=== PATIENT | male | born 1950 | race Hispanic/Latino ===

== ENCOUNTER 2018-01-28 07:13 | Day surgery (SDC) | payer OTHER ==
[~2018-01-28] VITALS: Ht 149.9 cm; Wt 66.1 kg
[~2018-01-28 07:13] MED LIST: ASPI-555 PO; FINA5TAB41 PO; GABA-529 PO; OMEP20CA10 PO; SENN8.6T20 PO; SODIUM CHLORIDE 0.9% 1000ML 1,000 ML IV ONE
[2018-01-28 08:39] VITALS: BP 125/75
[2018-01-28] MEDS ORDERED: PROPOFOL 10 MG/ML 20ML VIAL IV ONE ×2 (09:20→09:40)
[2018-01-28] MEDS ORDERED: FENTANYL CITRATE PF 50 MCG/1 ML 2ML VIAL ONE (09:20)
[2018-01-28 09:47] VITALS: BP 86/48
== END 2018-01-28 10:30 ==
LOC: DAH 07:13 → ENDO 07:13
PROVIDERS: ATTEND Internal Medicine Gastroenterology
DX: R19.4 Change in bowel habit (principal); K59.00 Constipation, unspecified; K21.0 Gastro-esophageal reflux disease with esophagitis; E78.5 Hyperlipidemia, unspecified; N40.0 Benign prostatic hyperplasia without lower urinary tract symptoms; F32.9 Major depressive disorder, single episode, unspecified; Z98.890 Other specified postprocedural states; Z79.899 Other long term (current) drug therapy; K44.9 Diaphragmatic hernia without obstruction or gangrene
CPT/HCPCS: 43235; 45378; A4606; J2704 ×2; J3010; J7030; 43239

== ENCOUNTER → 2018-08-25 | Outpatient (CLI) | payer OTHER ==
[~2018-08-25] MED LIST changes: -OMEP20CA10 PO; -SODIUM CHLORIDE 0.9% 1000ML 1,000 ML IV ONE
== END | disposition home or self-care (01) ==
LOC: RAH 13:40
PROVIDERS: ATTEND Family Medicine
DX: L72.0 Epidermal cyst (principal)
CPT/HCPCS: 76870

== ENCOUNTER 2018-11-29 07:56 | Day surgery (SDC) | payer OTHER ==
[2018-11-25 15:40] LABS: EOSINOPHILS % (AUTO) 2.4 % (0.0-8.0); HEMATOCRIT 39.4 % (42-54); MEAN CORPUSCULAR HEMOGLOBIN 29.8 pg (27.0-33.0); MEAN CORPUSCULAR HGB CONC 33.1 g/dL (32.0-36.0); MONOCYTES % (AUTO) 5.5 % (3.0-13.0); NEUTROPHILS % (AUTO) 68.1 % (40.0-77.0); NUCLEATED RED BLOOD CELLS 0.1 % (0.0-0.19); PLATELET COUNT (AUTO) 332 K/uL (130-400); RED BLOOD CELL COUNT(AUTO) 4.38 MIL/uL (4.50-6.20); RED CELL DISTRIBUTION WIDTH 14.4 % (11.0-15.5); WHITE BLOOD COUNT (AUTO) 7.9 K/uL (4.8-10.8)
[2018-11-25 15:52] LABS: CREATININE 0.8 mg/dL (0.5-1.5); POTASSIUM 3.9 mmol/L (3.5-5.1)
[2018-11-25 15:58] LABS: APPEARANCE,URINE Clear (CLEAR); BILIRUBIN,URINE Negative (NEGATIVE); COLOR,URINE Yellow (YELLOW); GLUCOSE, URINE (UA) Negative (NEGATIVE); KETONES,URINE Negative (NEGATIVE); LEUKOCYTE ESTERASE ,URINE Negative (NEGATIVE); NITRATE,URINE Negative (NEGATIVE); OCCULT BLOOD,URINE Negative (NEGATIVE); PROTEIN,URINE Negative (NEGATIVE)
[2018-11-25 16:17] VITALS: BP 132/68
[2018-11-29] VITALS (15 sets, daily range): BP systolic 72–148; BP diastolic 61–79
[~2018-11-29] VITALS: Ht 149.9 cm; Wt 69.7 kg
[~2018-11-29 07:56] MED LIST changes: -ASPI-555 PO; -GABA-529 PO; +LACTATED RINGERS 1000ML 1,000 ML IV SCH; +NAPR-1023 PO; +PANT20TA12 PO; -SENN8.6T20 PO
[2018-11-29] MEDS ORDERED: BUPIVACAINE/PF 0.25% 30ML VIAL IJ ONE (08:37)
[2018-11-29] MEDS ORDERED: ATOR20TA65 PO (08:43)
--- NOTE | 2018-11-29 08:43 | NUR ---
VALUABLES: CLOTHING, MEDICATIONS, GLASSES, CELL PHONE AND WALLET GIVEN TO .
[2018-11-29] MEDS ORDERED: DEXAMETHASONE SOD PHOSPHATE 4 MG/ML 1ML VIAL ONE (09:19)
[2018-11-29] MEDS ORDERED: ONDANSETRON HCL 4 MG/2 ML VIAL ONE (09:20)
[2018-11-29] MEDS ORDERED: ROCURONIUM 10MG/1ML SYR 10 MG/ML ML ONE (09:20)
[2018-11-29] MEDS ORDERED: GLYCOPYRROLATE 1 MG/5 ML SYRINGE ONE (09:20)
[2018-11-29] MEDS ORDERED: MIDAZOLAM HCL 1 MG/ML 2ML VIAL ONE (09:20)
[2018-11-29] MEDS ORDERED: FENTANYL CITRATE PF 50 MCG/1 ML 2ML VIAL ONE (09:20)
[2018-11-29] MEDS ORDERED: NEOSTIGMINE 5MG/5ML SYR IV ONE (09:20)
[2018-11-29] MEDS ORDERED: LIDOCAINE PF 2% 5ML ABBOJECT ONE (09:20)
[2018-11-29] MEDS ORDERED: PROPOFOL 10 MG/ML 20ML VIAL IV ONE ×2 (09:20→09:35)
--- NOTE | 2018-11-29 11:40 | NUR ---
SLIGHT SWELLING TO LT UPPER LIP,,,ICE APPLIED,NO OTHER COMPLAINTS
--- NOTE | 2018-11-29 11:45 | NUR ---
INSTRUCTIONS GIVEN TO SPOUSE ,VERBALIZE UNDERSTANDING
== END 2018-11-29 12:00 | disposition home or self-care (01) ==
LOC: DAH 07:56
PROVIDERS: ATTEND Surgery
DX: K40.90 Unilateral inguinal hernia, without obstruction or gangrene, not specified as recurrent (principal); M19.90 Unspecified osteoarthritis, unspecified site; N40.1 Benign prostatic hyperplasia with lower urinary tract symptoms; M54.16 Radiculopathy, lumbar region; F32.9 Major depressive disorder, single episode, unspecified; K21.9 Gastro-esophageal reflux disease without esophagitis; E78.5 Hyperlipidemia, unspecified; E66.3 Overweight; I45.10 Unspecified right bundle-branch block; M99.04 Segmental and somatic dysfunction of sacral region; Z79.899 Other long term (current) drug therapy; Z82.49 Family history of ischemic heart disease and other diseases of the circulatory system; Z83.3 Family history of diabetes mellitus; E66.9 Obesity, unspecified
CPT/HCPCS: 36415; 49505; 80048; 81003; 85025; 93005; A4450; A4452; A4930; C1729; C1781; J1100; J2001; J2250; J2405; J2704; J2710; J3010; J3490 ×2; J7120

== ENCOUNTER → 2019-01-17 | Outpatient (CLI) | payer OTHER ==
[~2019-01-17] MED LIST changes: +ATOR20TA65 PO; -LACTATED RINGERS 1000ML 1,000 ML IV SCH
== END | disposition home or self-care (01) ==
LOC: OIH 13:58
PROVIDERS: ATTEND Internal Medicine Cardiovascular Disease
DX: Z13.6 Encounter for screening for cardiovascular disorders (principal)
CPT/HCPCS: 75571

== ENCOUNTER → 2019-02-01 | Outpatient (CLI) | payer OTHER | END | disposition home or self-care (01) | LOC: SHCH 15:34 | PROVIDERS: ATTEND Internal Medicine Cardiovascular Disease | DX: I11.9 Hypertensive heart disease without heart failure (principal) | CPT/HCPCS: 93306 ==

== ENCOUNTER → 2019-05-08 | Outpatient (CLI) | payer OTHER ==
[~2019-05-08] VITALS: Ht 157.5 cm; Wt 69.4 kg
[~2019-05-08] MED LIST changes: +REGADENOSON 0.4 MG/5 ML PF SYG IVP ONE; +REGADENOSON 0.4 MG/5 ML PF SYG IVP SCH
== END | disposition home or self-care (01) ==
LOC: SHCH 08:18
PROVIDERS: ATTEND Internal Medicine Cardiovascular Disease
DX: I10 Essential (primary) hypertension (principal); E78.5 Hyperlipidemia, unspecified; K21.9 Gastro-esophageal reflux disease without esophagitis; K44.9 Diaphragmatic hernia without obstruction or gangrene; Z82.49 Family history of ischemic heart disease and other diseases of the circulatory system
CPT/HCPCS: 78452; 93017; 96374; A9500 ×2; J2785

== ENCOUNTER → 2019-10-31 | Outpatient (CLI) | payer OTHER ==
[~2019-10-31] MED LIST changes: -REGADENOSON 0.4 MG/5 ML PF SYG IVP ONE; -REGADENOSON 0.4 MG/5 ML PF SYG IVP SCH
== END | disposition home or self-care (01) ==
LOC: RAH 09:48
PROVIDERS: ATTEND Physical Medicine & Rehabilitation
DX: K42.9 Umbilical hernia without obstruction or gangrene (principal); K40.90 Unilateral inguinal hernia, without obstruction or gangrene, not specified as recurrent; K57.30 Diverticulosis of large intestine without perforation or abscess without bleeding; N40.0 Benign prostatic hyperplasia without lower urinary tract symptoms; M47.819 Spondylosis without myelopathy or radiculopathy, site unspecified
CPT/HCPCS: 74176

== ENCOUNTER → 2019-12-20 | Outpatient (CLI) | payer OTHER ==
[~2019-12-20] MED LIST changes: +GADODIAMIDE 10 MMOL/20 ML VIAL IV ONE
== END | disposition home or self-care (01) ==
LOC: RAH 13:48
PROVIDERS: ATTEND Family Medicine
DX: R51 Headache (principal)
CPT/HCPCS: 70553; A9579

== ENCOUNTER → 2020-05-31 | Outpatient (CLI) | payer OTHER ==
[~2020-05-31] MED LIST changes: -GADODIAMIDE 10 MMOL/20 ML VIAL IV ONE
== END | disposition home or self-care (01) ==
LOC: SHCH 14:30
PROVIDERS: ATTEND Internal Medicine Cardiovascular Disease
DX: I08.3 Combined rheumatic disorders of mitral, aortic and tricuspid valves (principal); I65.23 Occlusion and stenosis of bilateral carotid arteries; R01.1 Cardiac murmur, unspecified
CPT/HCPCS: 93306; 93356; 93880

== ENCOUNTER → 2020-12-27 | Outpatient (CLI) | payer OTHER ==
[~2020-12-27] VITALS: Ht 157.5 cm; Wt 68.5 kg
[~2020-12-27] MED LIST changes: -PANT20TA12 PO; +PANT20TA18 PO
[2020-12-27] MEDS: REGADENOSON 0.4 MG/5 ML PF SYG IVP SCH (13:00)
== END | disposition home or self-care (01) ==
LOC: SHCH 08:45
PROVIDERS: ATTEND Internal Medicine Cardiovascular Disease
DX: I10 Essential (primary) hypertension (principal); I25.10 Atherosclerotic heart disease of native coronary artery without angina pectoris
CPT/HCPCS: 78452; 93017; 96374; A9500 ×2; J2785

== ENCOUNTER → 2023-05-06 | Outpatient (CLI) | payer OTHER ==
[2023-05-06 12:14] LABS: CREATININE 0.8 mg/dL (0.5-1.5); POTASSIUM 4.2 mmol/L (3.5-5.1)
== END | disposition home or self-care (01) ==
LOC: LAB 08:41
PROVIDERS: ATTEND Physician Assistant
DX: I10 Essential (primary) hypertension (principal)
CPT/HCPCS: 36415; 80048

== ENCOUNTER → 2023-05-20 | Outpatient (CLI) | payer OTHER ==
[~2023-05-20] MED LIST changes: +IOHEXOL 350 MG/ML 100ML INFUS..BTL IV ONE
== END | disposition home or self-care (01) ==
LOC: RAH 08:04
PROVIDERS: ATTEND Internal Medicine Cardiovascular Disease
DX: R07.9 Chest pain, unspecified (principal)
CPT/HCPCS: 75574; Q9967

== ENCOUNTER → 2024-01-18 | Outpatient (CLI) | payer OTHER ==
[~2024-01-18] MED LIST changes: -IOHEXOL 350 MG/ML 100ML INFUS..BTL IV ONE
== END | disposition home or self-care (01) ==
LOC: RAH 14:32
PROVIDERS: ATTEND Physician Assistant
DX: M47.816 Spondylosis without myelopathy or radiculopathy, lumbar region (principal); M54.51 Vertebrogenic low back pain; M48.07 Spinal stenosis, lumbosacral region
CPT/HCPCS: 72114

== ENCOUNTER → 2024-02-29 | Outpatient (CLI) | payer OTHER | END | disposition home or self-care (01) | LOC: RAH 14:10 | PROVIDERS: ATTEND Physical Medicine & Rehabilitation | DX: M51.37 Other intervertebral disc degeneration, lumbosacral region (principal); M54.51 Vertebrogenic low back pain; R25.2 Cramp and spasm | CPT/HCPCS: 72148 ==

== ENCOUNTER → 2024-08-22 | Outpatient (CLI) | payer OTHER | END | disposition home or self-care (01) | LOC: SHCH 14:38 | PROVIDERS: ATTEND Internal Medicine Cardiovascular Disease | DX: I65.23 Occlusion and stenosis of bilateral carotid arteries (principal); R06.00 Dyspnea, unspecified | CPT/HCPCS: 93880 ==

== ENCOUNTER → 2025-01-18 | Outpatient (CLI) | payer OTHER ==
[~2025-01-18] MED LIST changes: +ACET-2743 PO; +FAMO40TA7 PO; +GABA-529 PO; +LISI10TA24 PO; -NAPR-1023 PO; -PANT20TA18 PO; +PANT40TA54 PO
--- NOTE | 2025-01-18 14:08 | HMCIMG ---
US SCROTUM & CONTENTS HISTORY: Benign neoplasm of the left testes COMPARISON: None TECHNIQUE: Duplex scrotal ultrasound study was performed. FINDINGS: The right testes measures 3.8 x 2.2 x 4 cm. The left testes measures 3.9 x 2 x 2.9 cm. No evidence of intratesticular mass or abnormal calcification is seen. Normal flow is demonstrated in the testes and epididymides bilaterally. There is mild left hydrocele. There are bilateral epididymal cysts with the largest on the right measuring 14 mm and on the left measuring 15 mm. IMPRESSION: 1. No evidence of intratesticular mass is seen. 2. Normal flow is demonstrated of both testes. Mild left hydronephrosis.
== END | disposition home or self-care (01) ==
LOC: RAH 12:56
PROVIDERS: ATTEND Urology
DX: N50.3 Cyst of epididymis (principal); N43.2 Other hydrocele; D29.22 Benign neoplasm of left testis; N13.39 Other hydronephrosis
CPT/HCPCS: 76870